=== PATIENT | female | born 1975 | race Caucasian/White ===

== ENCOUNTER 2017-08-08 15:47 | Emergency (ER) | payer MEDICARE, MEDICAID ==
[2017-08-08 17:06] VITALS: BP 150/98
[2017-08-08] MEDS ORDERED: DOXYcycline CAP(*) 100 MG PO ONE (17:15)
[2017-08-08] MEDS ORDERED: Albuterol HFA INHALER* 8 gm MDI INH ONE (17:15)
--- NOTE | 2017-08-08 17:19 | UC ---
Respiratory Complaint HPI - HPI Summary HPI Summary: cough, sinus pressure, wheezing for about 1 week, Hx of smoking - History of Current Complaint Chief Complaint: UCRespiratory Stated Complaint: COLD SYMPTOMS Time Seen by Provider: 08/08/17 17:07 Hx Obtained From: Patient Hx Last Menstrual Period: 07/10/16 ?: No Onset/Duration: Sudden Onset, Lasting Days Timing: Constant Severity Initially: Mild Severity Currently: Mild - Allergies/Home Medications Allergies/Adverse Reactions: Allergies Allergy/AdvReac Type Severity Reaction Status Date / Time Fluticasone [From Flovent] Allergy Severe seizure Verified 08/08/17 17:06 Oxycodone [From Percocet] Allergy Mild dependency Verified 08/08/17 17:06 Iodine Allergy Hives Verified 08/08/17 17:06 Home Medications: Home Medications Varenicline Tartrate [Chantix Starting M... 0.5 mg X 11 & 1 mg X 42] 1 moriah PO DAILY 08/08/17 [History Confirmed 08/08/17] busPIRone TAB* [Buspar TAB*] 5 mg PO BID PRN 08/08/17 [History Confirmed ] PMH/Surg Hx/FS Hx/Imm Hx Previously Healthy: Yes - Surgical History Surgical History: Yes Surgery Procedure, Year, and Place: fess. bladder mesh implant- 09. tubaligation - . knee surgery- . partial thyroidectomy - Family History Known Family History: Positive: Hypertension - Social History Alcohol Use: None Alcohol Amount: recovering alcoholic Substance Use Type: None Smoking Status (MU): Light Every Day Tobacco Smoker Type: Cigarettes Amount Used/How Often: 5 cigarettes a day Length of Time of Smoking/Using Tobacco: 10 years Have You Smoked in the Last Year: Yes Household Exposure Type: Cigarettes Review of Systems Constitutional: Fatigue Skin: Negative Eyes: Negative ENT: Sore Throat Respiratory: Shortness Of Breath, Cough Cardiovascular: Negative Gastrointestinal: Negative Genitourinary: Negative Motor: Negative Neurovascular: Negative Musculoskeletal: Negative Neurological: Negative Psychological: Negative Is Patient Immunocompromised?: No All Other Systems Reviewed And Are Negative: Yes Physical Exam Triage Information Reviewed: Yes Appearance: Well-Nourished, Ill-Appearing, Pain Distress Vital Signs: Initial Vital Signs Temp 97.2 F 08/08/17 17:02 Pulse 98 08/08/17 17:02 Resp 18 08/08/17 17:02 BP 150/98 08/08/17 17:02 Pulse Ox 94 08/08/17 17:02 Vital Signs Reviewed: Yes Eye Exam: Normal ENT Exam: Normal ENT: Positive: Pharyngeal erythema, Nasal congestion, Tonsillar swelling Dental Exam: Normal Neck exam: Normal Neck: Positive: Supple, Nontender, No Lymphadenopathy Respiratory: Positive: Normal breath sounds, Decreased breath sounds, Wheezing, Inspiration Cardiovascular Exam: Normal Cardiovascular: Positive: RRR, No Murmur, Pulses Normal Abdominal Exam: Normal Abdomen Description: Positive: Nontender, No Organomegaly, Soft Bowel Sounds: Positive: Present Musculoskeletal Exam: Normal Neurological Exam: Normal Psychological Exam: Normal Skin Exam: Normal UC Diagnostic Evaluation - Laboratory O2 Sat by Pulse Oximetry: 94 Respiratory Course/Dx - Course Course Of Treatment: hx obtained, exam performed, meds reviewed, treated for bronchitis - Differential Dx/Diagnosis Differential Diagnosis/HQI/PQRI: Asthma, Bronchitis, Exacerbation Of COPD, Laryngitis, Sinusitis Provider Diagnoses: Bronchitis Discharge - Discharge Plan Condition: Stable Disposition: HOME Prescriptions: DOXYcycline CAP(*) [DOXYcycline 100MG CAP(*)] 100 mg PO BID #14 cap Patient Education Materials: Acute Bronchitis (ED) Referrals: [facility] [Primary Care Provider] - Additional Instructions: 1. take the medication as prescribed. 2. increase fluid intake and get rest 3. FOllow up as needed.
== END 2017-08-08 17:40 | disposition home or self-care (01) ==
LOC: UCCORT 15:47
DX: J40 Bronchitis, not specified as acute or chronic (principal); F17.210 Nicotine dependence, cigarettes, uncomplicated
CPT/HCPCS: 99212; A9270-GY; G0463